=== PATIENT | female | born 2000 | race Caucasian/White ===

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

== ENCOUNTER → 2020-04-13 | Outpatient (CLI) | payer BC ==
--- NOTE | 2020-04-14 10:49 | SLEEP ---
DATE OF STUDY: HOME SLEEP STUDY The patient is a 19-year-old who weighs 210 pounds with a BMI of 36. The patient underwent home sleep study performed at [facility]. Total recording time was 570 minutes. During the night study, the patient had 33 obstructive apneas, 10 central apneas, 4 mixed apneas and 9 hypopneas. The patient's AHI was 8.3 per hour. Nocturnal oximetry study revealed an average oxygen saturation 95% with the lowest of 90%. Mean heart rate 62 beats per minute. IMPRESSION: 1. Mild obstructive sleep apnea at an AHI of 8.3 per hour. 2. No clinically significant nocturnal hypoxia. RECOMMENDATIONS: 1. The patient has mild sleep apnea. Consider weight loss as the initial form of treatment. 2. If the patient is clinically symptomatic or has comorbid conditions, then the patient's sleep apnea can be treated with either CPAP versus oral appliance. 3. Avoid [employer] depressants. 4. Cautioned regarding driving until symptoms of sleep apnea resolve with above recommendations. OC SNYDER MD DR: MARIA C/gary JOB#: [id number] / [id number] TASHA Dupree MD
== END ==
LOC: RT 09:06
PROVIDERS: ATTEND Internal Medicine Cardiovascular Disease
DX: G47.33 Obstructive sleep apnea (adult) (pediatric) (principal)
CPT/HCPCS: G0399

== ENCOUNTER → 2020-05-12 | Outpatient (CLI) | payer BC ==
--- NOTE | 2020-05-12 13:08 | CARD ---
MR#: [id number] Date of Study: 05/12/2020 Ordering Physician: TASHA ROSE, Referring Physician: TASHA ROSE, Tech: Katina Sheppard APPROVED REPORT EXAM: Two-dimensional and M-mode echocardiogram with Doppler and color Doppler. Other Information Quality : GoodHR: 59bpm INDICATION Palpitations 2D DIMENSIONS RVDd3.4 (2.9-3.5cm)Left Atrium(2D)3.0 (1.6-4.0cm) IVSd0.7 (0.7-1.1cm)Aortic Root(2D)2.7 (2.0-3.7cm) LVDd5.1 (3.9-5.9cm)LVOT Diameter2.1 (1.8-2.4cm) PWd0.8 (0.7-1.1cm)LVDs3.2 (2.5-4.0cm) FS (%) 38.7 %SV86.7 ml LVEF(%)68.7 (>50%) Aortic Valve AoV Peak Nahid.132.7cm/sAoV VTI28.4cm AO Peak GR.7.0mmHgLVOT Peak Nahid.108.2cm/s LVOT VTI 22.47cmAO Mean GR.4mmHg SARABJIT (VMAX)2.03kv2ZPI (VTI)2.68cm2 Mitral Valve MV E Ftkbanqu87.6cm/sMV DECEL YQGR782aw MV A Cahjbrtz56.2cm/sMV VAD64mf E/A Ratio1.7MVA (PHT)2.95cm2 TDI E/Lateral E'4.4E/Medial E'6.8 Pulmonary Valve PV Peak Lvnhfjqy043.9cm/sPV Peak Grad.4mmHg Tricuspid Valve TR P. Tsciuaks099vc/sRAP UMVNVTXH1xpTj TR Peak Gr.17gkFsEZDU91roTv Pulmonary Vein S1 Eavtimek94.4cm/sD2 Bpdhrlmr28.9cm/s PVa wwmzjxgu08qhmz LEFT VENTRICLE The left ventricle is normal size. There is normal left ventricular wall thickness. The left ventricu lar systolic function is normal. The Ejection Fraction is 60-65%. There is normal LV segmental wall m otion. The left ventricular diastolic function and filling is normal for age. RIGHT VENTRICLE The right ventricle is normal size. There is normal right ventricular wall thickness. The right ventr icular systolic function is normal. ATRIA The left atrium size is normal. The right atrium size is normal. The interatrial septum is intact wit h no evidence for an atrial septal defect or patent foramen ovale as noted on 2-D or Doppler imaging. AORTIC VALVE The aortic valve is normal in structure and function. Doppler and Color Flow revealed no significant aortic regurgitation. There is no significant aortic valvular stenosis. Calculated aortic valve area is 2.9 cm2 with maximum pressure gradient of 8 mmHg and mean pressure gradient of 4 mmHg. MITRAL VALVE The mitral valve is normal in structure and function. There is no evidence of mitral valve prolapse. There is no mitral valve stenosis. Doppler and Color-flow revealed trace mitral regurgitation. TRICUSPID VALVE The tricuspid valve is normal in structure and function. Doppler and Color Flow revealed trace tricus pid regurgitation with an estimated PAP of 20 mmHg. There is no tricuspid valve stenosis. PULMONIC VALVE The pulmonic valve is not well visualized. Doppler and Color Flow revealed trace pulmonic valvular re gurgitation. GREAT VESSELS The aortic root is normal in size. The ascending aorta is normal in size. The IVC is normal in size a nd collapses >50% with inspiration. PERICARDIAL EFFUSION There is no evidence of significant pericardial effusion. Critical Notification Critical Value: No <Conclusion> The left ventricular systolic function is normal. The Ejection Fraction is 60-65%. There is normal LV segmental wall motion. Trace mitral regurgitation. Trace tricuspid regurgitation with an estimated PAP of 20 mmHg. There is no evidence of significant pericardial effusion. Signed by : Alvaro Pollard, Electronically Approved : 05/12/2020 13:07:25
== END ==
LOC: ECHO 08:53
PROVIDERS: ATTEND Internal Medicine Cardiovascular Disease
DX: R00.2 Palpitations (principal)
CPT/HCPCS: 93306